=== PATIENT | male | born 1995 | race Hispanic/Latino ===

== ENCOUNTER 2019-11-21 21:51 | Emergency (ER) | payer BC, OTHER | END 2019-11-22 00:18 | disposition home or self-care (01) | LOC: ERS 21:51 | DX: R05 Cough (principal); R50.9 Fever, unspecified; Z20.828 Contact with and (suspected) exposure to other viral communicable diseases | CPT/HCPCS: 87081; 87430; 87635; 99283; U0003 ==

== ENCOUNTER → 2022-05-15 08:37 | Emergency (ER) | payer BC, SELFPAY ==
[~2022-05-15 08:37] MED LIST: Bacitracin 1 PK ONE; CEFAZOLIN 1 GM VIAL ONE; FENTANYL 50 MCG/ML 1 ML VIAL ONE; Morphine 4 MG/ML VIAL ONE
== END | disposition short-term general hospital (02) ==
LOC: ERS 08:37
DX: T20.20XA Burn of second degree of head, face, and neck, unspecified site, initial encounter (principal); X03.0XXA Exposure to flames in controlled fire, not in building or structure, initial encounter
CPT/HCPCS: 96374; 96375; 96376; J0690; J2270; J3010

== ENCOUNTER 2024-04-14 11:07 | Emergency (ER) | payer OTHER, SELFPAY ==
[2024-04-14] MEDS ORDERED: Fluorescein Opthalmic Strip ONE (13:01)
[2024-04-14] MEDS ORDERED: Proparacaine 0.5% Opth 15 ML BOT ONE (13:02)
== END 2024-04-14 14:25 | disposition home or self-care (01) ==
LOC: ERS 11:07
DX: T26.61XA Corrosion of cornea and conjunctival sac, right eye, initial encounter (principal)
CPT/HCPCS: 99282